=== PATIENT | female | born 1940 | race Caucasian/White ===

== ENCOUNTER → 2019-03-30 | Day surgery (SDC) | payer OTHER, MEDICARE ==
--- NOTE | 2019-04-02 17:03 | PATH ---
Surgical Pathology Report Patient Name: PAOLA BARAKAT [facility]. Rec. #: [id number] /Age/Gender: 1940 (Age: 78) / F Account: [id number] Location: [facility] RADIOLOGY U Taken: 03/30/2019 Received: 03/30/2019 Reported: 04/02/2019 Physicians: Rajesh King M.D. Specimen(s) Received RIGHT BREAST MASS Clinical History Suspicious right breast mass Ultrasound findings: Highly suspicious/malignant Final Diagnosis RIGHT BREAST MASS, 5:00, 1-4CM FN, BIOPSY: DETACHED MALIGNANT DUCTAL EPITHELIUM, IN A BACKGROUND OF MARKED NECROSIS, HEMORRHAGE, AND MICROCALCIFICATIONS. ONE SEPARATE PORTION OF FIBROADIPOSE TISSUE WITH HISTIOCYTIC REACTION, OLD HEMORRHAGE, AND FIBROSIS. Results of Estrogen Receptor (ER) and Progesterone Receptor (NM) studies performed on block "1" at [facility] are as follows: ER (clone [id number] mouse monoclonal antibody by Leica): 0% nuclear staining (Negative). NM (clone16 mouse monoclonal antibody by Leica): 0% nuclear staining (Negative). Positive and negative controls (internal if applicable) show appropriate results. Formalin fixation and cold ischemic times are within current ASCO/CAP recommendations for ER, NM and Her2 testing. Reports for Her 2 and Ki-67 to follow. This case was discussed with Dr. Perea on April 02, 2019. Electronically Signed Real Rashid M.D. Addendum Reported: 04/04/2019 Addendum Diagnosis Biomarker Studies Results of Her2 (IHC) & Ki-67 studies performed on this specimen at [place], [place] ([id number]) interpreted at [facility] are as follows: Her2 IHC (EP3 from [employer], formerly known as [id number], using Dorsey Polymer Refine detection kit): Negative (1+) Ki-67: ~20% (intermediate proliferative index) This case was discussed with Dr. Matthews on April 04, 2019. Real Rashid M.D. Gross Description Received in formalin labeled "right breast biopsy 5:00, 1-4cmfn," is a 3.0 x 2.7 x 0.3 cm aggregate of ferro-brown fragments of necrotic soft tissue. The formalin is filtered and the specimen is entirely submitted in 2 cassettes. Time to formalin fixation: 2 minutes Total formalin fixation time: Approximately 7 hours. 03/30/2019 [facility]03/30/2019
== END | disposition home or self-care (01) ==
LOC: FRADUS-SUR 10:02
PROVIDERS: ATTEND Specialist
PROC: 0HBT3ZX Excision of Right Breast, Percutaneous Approach, Diagnostic (ICD-10-PCS; principal; 2019-03-30)
DX: C50.311 Malignant neoplasm of lower-inner quadrant of right female breast (principal); Z17.1 Estrogen receptor negative status [ER-]; N63.13 Unspecified lump in the right breast, lower outer quadrant; N64.89 Other specified disorders of breast; N64.1 Fat necrosis of breast
CPT/HCPCS: 19083; 77065-TC; 87899; 88305-TC; 88342-TC; A4648

== ENCOUNTER 2019-04-19 08:00 | Inpatient (IN) | payer OTHER, MEDICARE ==
[2019-04-10 12:16] VITALS: BMI 18.3
--- NOTE | 2019-04-12 11:59 | HP ---
Admitting History and Physical - Primary Care Physician PCP: Guille Linn - Admission Chief Complaint: Right breast cancer History of Present Illness: 78 year old female with right breast mass noted by patient who carries a [id number]. Mammogram and US 02/2019 showed 3cm mass in the right 4 to 5:00 region with associated pleomorphic calcifications. US showed the mass to be 3.6x2.7x2.7cm at 5 :00 with irregular margins 1to 4 cm FN. 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 - Past Medical History Cardiovascular: Yes: HTN, Hyperlipdemia Pulmonary: Yes: Pneumonia (H/O) Rheumatology: Yes: Rheumatoid Arthritis Additional Past Medical History: Herpes - Past Surgical History Past Surgical History: Yes: Appendectomy Additional Past Surgical History: Left breast bx 2006 benign Mutiple fxs - Advance Directives Advance Directives: Yes: Living Will, Health Care Proxy - Smoking History Smoking history: Former smoker Have you smoked in the past 12 months: No Aproximately how many cigarettes per day: 5 If you are a former smoker, when did you quit?: 1999 - Alcohol/Substance Use Hx Alcohol Use: Yes (WINE DAILY) Home Medications - Allergies Allergies/Adverse Reactions: Allergies Allergy/AdvReac Type Severity Reaction Status Date / Time No Known Allergies Allergy Verified 04/10/19 12:04 - Home Medications Home Medications: Ambulatory Orders Amlodipine Besylate [Norvasc -] 10 mg PO DAILY 10/12/11 Hydrochlorothiazide [Hctz -] 25 mg PO DAILY 10/12/11 Methotrexate [Mexate -] 7.5 mg PO WEEKLY 10/12/11 Potassium Chloride [Klor-Con] 10 meq PO BID 10/12/11 Folic Acid - 1 mg PO DAILY #0 tablet 10/14/11 Biotin 5,000 mcg PO DAILY 04/04/13 Family Medical History Family Hx Cancer: Daughter (BRIP1+ breast ca at age 49// other daughter BRIP1+ no cancer /Sister CRC) Physical Examination Breast(s): Yes: Other (A sized cupbreast obvious bruising right breast 3 cm palpable mass lower aspect right breast mobile,no adenopathy and left breast neagtive) Problem List - Problems (1) Breast cancer, right breast Code(s): C50.911 - MALIGNANT NEOPLASM OF UNSP SITE OF RIGHT FEMALE BREAST Qualifiers: Breast location: lower outer quadrant of breast Estrogen receptor status: unspecified Patient sex: female Qualified Code(s): C50.511 - Malignant neoplasm of lower-outer quadrant of right female breast Assessment/Plan Right total mastectomy ,sentenel node biopsy, possible axillary node dissection , lymphoscintogram
[2019-04-19] MEDS ORDERED: ISOSULFAN BLUE 10 MG/ML VIAL SQ ONE (10:00)
[2019-04-19] MEDS ORDERED: BUPIVACAINE HCL 0.25% 125 MG/50 ML VIAL ONE (10:00)
[2019-04-19] MEDS ORDERED: MIDAZOLAM HCL 2 MG/2 ML SINGLE DOSE VIAL ONE (10:08)
[2019-04-19] MEDS ORDERED: PROPOFOL 20 ML ONE ×2 (10:13)
[2019-04-19] MEDS ORDERED: SUCCINYLCHOLINE CHLORIDE 200 MG/10 ML SYRINGE ONE (10:13)
[2019-04-19] MEDS ORDERED: SEVOFLURANE 250 ML BTL ONE (10:13)
[2019-04-19] MEDS ORDERED: LIDOCAINE HCL/PF 2% SDV 5ML VIAL ONE (10:27)
[2019-04-19] MEDS ORDERED: ceFAZolin SODIUM 1 GM VIAL ONE (10:27)
[2019-04-19] MEDS ORDERED: LIDOCAINE HCL 2% JELLY (5 ML/TUBE) ONE (10:27)
[2019-04-19] MEDS ORDERED: ONDANSETRON 4 MG/2 ML VIAL ONE (10:27)
[2019-04-19] MEDS ORDERED: DEXAMETHASONE SOD PHOSPHATE 4 MG/1 ML VIAL ONE (10:27)
[2019-04-19] MEDS ORDERED: KETOROLAC TROMETHAMINE 30 MG/1 ML VIAL ONE (10:27)
[2019-04-19] MEDS ORDERED: ONDANSETRON 4 MG/2 ML VIAL IVPUSH PRN (12:43)
[2019-04-19] MEDS ORDERED: ACETAMINOPHEN 325 MG TABLET (FP) PO PRN (12:43)
[2019-04-19] MEDS ORDERED: oxyCODONE HCL 5 MG TABLET PO PRN (12:43)
[2019-04-19] MEDS ORDERED: ZOLPIDEM TARTRATE 5 MG TABLET PO PRN (12:43)
[2019-04-19] MEDS ORDERED: DEXTROSE 5%-0.45% SALINE 1,000 ML IV SCH (12:45)
[2019-04-19] MEDS ORDERED: METHOTREXATE 2.5 MG TABLET PO SCH (12:45)
--- NOTE | 2019-04-19 13:52 | OP ---
DATE OF OPERATION: 04/19/2019 PREOPERATIVE DIAGNOSIS: Right breast cancer lower outer quadrant. POSTOPERATIVE DIAGNOSIS: Right breast cancer lower outer quadrant. PROCEDURE: Right breast total mastectomy with right axillary sentinel lymph node biopsy. PRIMARY SURGEON: Jj Linn MD ASSURANCE OFFICER: AMIE Shah COMPLICATIONS: There were no complications. Briefly, the patient is a 78-year-old G3, P3 postmenopausal white female with [place] descent. She has a family history that her daughter had breast cancer at age 49 and was BRIP1 genetic positive. 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 She noticed a right lower outer quadrant breast mass and on March 16, 2019, underwent a mammography and ultrasound showing a 3 cm mass in the right breast lower outer quadrant with pleomorphic calcifications measuring about 3.6 x 2.7 x 2.7 cm. Ultrasound-guided core biopsy showed detached malignant ductal cancer cells, which were triple negative with a KI67 of 20%. MRI showed localized disease with no lymphadenopathy. Due to lack of formal architectural pathology, the patient was advised undergoing surgery and due to the size of the lesion and her small breast, mastectomy was indicated. She understood the need for a sentinel lymph node biopsy. She was offered reconstruction, but refused. The patient was brought in for the procedure on April 19, 2019. She first underwent lymphoscintigraphy at [facility] and then was brought to the [facility] holding area. In the holding area, site verification was made and informed consent was obtained. PROCEDURE: She was brought into the operating room and laid on the OR table in the supine position. Venodynes were placed on the lower extremities. She received a g of Ancef prior to incision. She underwent general laryngeal mask airway anesthesia. The right breast was sterilely prepped and draped in the usual fashion and 3 mL of Lymphazurin Blue were injected intradermally around the right breast nipple areola complex and massage was instituted. At this point, the sentinel lymph node biopsy was first performed. An incision was made in the right axilla and dissection was undertaken and blue lymphatics were easily seen coursing to 2 blue hot lymph nodes. The first sentinel lymph node had 10 second gamma count of 4746 and the second sentinel node had a 10 second gamma count of 1281. Both nodes were sent for frozen section and came back negative, so no further nodes were removed. Background count after removing these 2 nodes was 285. At this point, the total mastectomy was performed removing the entire nipple areola complex through an elliptical incision. Skin flaps were raised superiorly to the level of the clavicle, medially to the level of the sternum, laterally to the level of the latissimus, and inferiorly below the level of the inframammary fold. The breast was taken out off the pectoralis major muscle from medial to lateral completely removed intact. It was oriented with the long lateral short superior suture and then sent off the field placed in formalin to go to Pathology. The cancer was easily felt within the middle of the specimen. Hemostasis was achieved and the wound was copiously irrigated with warm sterile saline. Skin edges were trimmed for good cosmetic result. Two 15 Jagdeep drains were then placed underneath the skin flaps, one inferiorly, one superiorly, and brought through separate stab incisions on the lateral skin flap and secured in place using 3-0 nylon suture. Wounds were all closed using interrupted 3-0 deep dermal Vicryl suture and a running 4-0 subcuticular Biosyn suture. Mastisol and Steri-Strips were applied over the wound with the compressive dressing placed over this. She was placed in a chest binder postoperatively and the laryngeal mask airway tube was removed at the end of the case. The patient will be recovered in the post anesthesia care unit and will be admitted postoperatively for pain and wound management. All sponge and needle counts were correct at the end of the case and estimated blood loss was about 60 mL. She was hemodynamically stable throughout. JJ LINN M.D. [id number]
[2019-04-19] MEDS ORDERED: LACTATED RINGERS SOLUTION 1,000 ML IV SCH (14:15)
[2019-04-19] MEDS: CEFAZOLIN 1 GM/D5W 1 GM/50 ML BAG IVPB SCH ×2 (15:31→20:55)
[2019-04-19] MEDS: POTASSIUM CHLORIDE TABS 10 MEQ TABLET.ER (FP) PO SCH (21:06)
[2019-04-19] MEDS ORDERED: ATORVASTATIN CA 20 MG TABLET (FP) PO SCH (22:00)
[2019-04-20] MEDS: CEFAZOLIN 1 GM/D5W 1 GM/50 ML BAG IVPB SCH ×2 (03:27→09:45)
[2019-04-20 07:07] VITALS: TEMP 97.7
[2019-04-20 07:50] LABS: HEMATOCRIT 29.6 % (32.4-45.2); MCH 36.4 pg (25.7-33.7); MCHC 33.9 g/dl (32.0-36.0); MEAN CELL VOLUME 107.4 fl (80-96); MEAN PLT VOLUME 9.5 fl (7.5-11.1); PLATELET COUNT 193 K/MM3 (134-434); RBC 2.76 M/mm3 (3.60-5.2); RDW 15.8 % (11.6-15.6); WHITE BLOOD COUNT 9.9 K/mm3 (4.0-10.8)
[2019-04-20] MEDS ORDERED: HEPARIN NA (PORCINE) 5,000 UNITS/ML 1ML VIAL SQ SCH (08:00)
--- NOTE | 2019-04-20 09:15 | PN ---
Progress Note, Physician Chief Complaint: S/P right mastectomy with snbx POD#1 History of Present Illness: Patient was seen at the bedside this am and reports good pain control. She is tolerating po well and has voided. - Current Medication List Current Medications: Active Medications Acetaminophen (Tylenol -) 650 mg PO Q4H PRN PRN Reason: FEVER Amlodipine Besylate (Norvasc -) [address] [facility] Atorvastatin Calcium (Lipitor -) [address] [facility] Last Admin: 04/19/19 21:06 Dose: 20 mg Fentanyl (Sublimaze Injection -) 25 mcg IVPUSH [id number] PRN PRN Reason: PAIN-PACU ORDER X 4 DOSES ONLY Folic Acid (Folic Acid -) [address] [facility] Heparin Sodium (Porcine) (Heparin -) 5,000 unit SQ BID@0800,2000 [facility] Hydrochlorothiazide (Hctz -) [address] [facility] Cefazolin Sodium (Ancef 1 Gm Premixed Ivpb -) 1 gm in 50 mls @ 100 mls/hr IVPB Q6H-IV JOLIE Stop: 04/26/19 14:59 Last Admin: 04/20/19 03:27 Dose: 100 mls/hr Dextrose/Sodium Chloride (D5-1/2ns -) 1,000 mls @ 100 mls/hr IV ASDIR [facility] Last Admin: 04/19/19 13:50 Dose: 0 mls Lactated Ringer's (Lactated Ringers Solution) 1,000 mls @ 75 mls/hr IV ASDIR [facility] Methotrexate (Mexate -) 7.[address] [facility] Ondansetron HCl (Zofran Injection) 4 mg IVPUSH Q6H PRN PRN Reason: NAUSEA AND/OR VOMITING Oxycodone HCl (Roxicodone -) 5 mg PO Q4H PRN PRN Reason: PAIN LEVEL 4 - 6 Potassium Chloride (K-Dur -) [address] [facility] Last Admin: 04/19/19 21:06 Dose: 10 meq Zolpidem Tartrate (Ambien -) 5 mg PO HS PRN PRN Reason: Insomnia - Objective Vital Signs: Vital Signs Temperature 97.7 F 04/20/19 06:00 Pulse Rate 95 H 04/20/19 06:00 Respiratory Rate 18 04/20/19 06:00 Blood Pressure 124/61 04/20/19 06:00 O2 Sat by Pulse Oximetry (%) 100 04/20/19 08:26 Constitutional: Yes: Well Nourished, Calm Breast(s): Yes: Other (Right chest flap with steristrips intact. Minimal ecchymosis noted. JPs x 2 with serosanguinous discharge noted. No swelling or erythema noted.) Labs: CBC, BMP 04/20/19 06:50 Problem List - Problems (1) Breast cancer, right breast Code(s): C50.911 - MALIGNANT NEOPLASM OF UNSP SITE OF RIGHT FEMALE BREAST Qualifiers: Breast location: lower outer quadrant of breast Estrogen receptor status: unspecified Patient sex: female Qualified Code(s): C50.511 - Malignant neoplasm of lower-outer quadrant of right female breast Assessment/Plan Assess: S/P right mastectomy with snbx POD#1 -doing well Plan: Continue current tx regime Teach MORENA monitoring Make appt next week to see Dr. Linn Possible discharge in pm
[2019-04-20] MEDS: POTASSIUM CHLORIDE TABS 10 MEQ TABLET.ER (FP) PO SCH (09:46)
[2019-04-20] MEDS ORDERED: HYDROCHLOROTHIAZIDE 25 MG TABLET (FP) PO SCH (10:00)
[2019-04-20] MEDS ORDERED: amLODIPine BESYLATE 10 MG TABLET (FP) PO SCH (10:00)
[2019-04-20] MEDS ORDERED: FOLIC ACID 1 MG TABLET (FP) PO SCH (10:00)
[2019-04-20 10:56] VITALS: BP 102/41; PULSE 93
--- NOTE | 2019-04-24 15:35 | PATH ---
Surgical Pathology Report Patient Name: PAOLA BARAKAT Med. Rec. #: [id number] /Age/Gender: 1940 (Age: 78) / F Account: [id number] Location: [facility] Taken: 04/19/2019 Received: 04/19/2019 Reported: 04/24/2019 Physicians: Guille Linn M.D. Specimen(s) Received A: RIGHT AXILLARY SENTINEL LYMPH NODE #1 (FS) B: RIGHT AXILLARY SENTINEL LYMPH NODE #2 (FS) C: RIGHT BREAST MASTECTOMY Clinical History Right breast cancer Intraoperative Consult Diagnosis A. Right axillary sentinel lymph node #1, frozen section: One negative lymph node (0/1). B. Right axillary sentinel lymph node #2, frozen section: One negative lymph node (0/1). Misbah Reynaga, 04/19/2019 Final Diagnosis A. RIGHT AXILLARY SENTINEL LYMPH NODE #1 (4746), EXCISION (FS): ONE LYMPH NODE, NEGATIVE FOR METASTATIC CARCINOMA IN MULTIPLE LEVELS OF H&E STAINED SLIDES (0/1). B. RIGHT AXILLARY SENTINEL LYMPH NODE #2 (4281), EXCISION (FS): ONE LYMPH NODE, NEGATIVE FOR METASTATIC CARCINOMA IN MULTIPLE LEVELS OF H&E STAINED SLIDES (0/1). C. RIGHT BREAST MASTECTOMY: INVASIVE CARCINOMA WITH APOCRINE FEATURES, LOWER INNER QUADRANT, POORLY DIFFERENTIATED (TUBULE SCORE 2/3, NUCLEAR GRADE: 3/3, MITOTIC SCORE: 3/3, TOTAL SCORE 8/9, MARILEE GRADE 3), WITH MARKED NECROSIS AND MICROCALCIFICATIONS, MEASURING 2.4 CM IN GREATEST DIMENSION, MICROSCOPICALLY. 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 SURGICAL MARGINS ARE UNINVOLVED BY CARCINOMA. INVASIVE CARCINOMA IS AT 4 MM FROM THE CLOSEST (POSTERIOR) MARGIN. LYMPHOVASCULAR INVASION IS PRESENT. PRIOR BIOPSY SITE WITH REACTIVE CHANGES. REMAINING BREAST TISSUE SHOW ATYPICAL LOBULAR HYPERPLASIA (ALH), APOCRINE METAPLASIA, MICROCYSTS, AND STROMAL FIBROSIS. PATHOLOGIC STAGE (pTNM): pT2 pN0 SEE ALSO INVASIVE CARCINOMA CASE SUMMARY BELOW. Comment: Immunohistochemical stains performed and interpreted at [facility] show the following results: smooth muscle myosin heavy chain and p63 show loss of the myoepithelial cell layer in the areas of invasive carcinoma (block C3). E-Cadherin demonstrates loss of membranous staining in areas of atypical lobular hyperplasia (block C11). Positive and negative controls (internal if applicable) show appropriate results. Comments Breast Invasive Carcinoma: Surgical Pathology Case Summary (Based on AJCC TNM 8 th edition) Procedure _x_ Total mastectomy (including nipple-sparing and skin-sparing mastectomy) Specimen Laterality _x_ Right Tumor Size _x_ Greatest dimension of largest invasive focus >1 mm (millimeters): 24 mm Histologic Type _x_ Invasive carcinoma with apocrine features Histologic Grade ([place] Histologic Score) Glandular (Acinar)/Tubular Differentiation _x_ Score 2 (10% to 75% of tumor area forming glandular/tubular structures) Nuclear Pleomorphism _x_ Score 3 Mitotic Rate _x_ Score 3 Overall Grade _x_ Grade 3 (scores of 8 or 9) Tumor Focality _x_ Single focus of invasive carcinoma Ductal Carcinoma In Situ (DCIS) No DCIS in specimen Margins Invasive Carcinoma Margins _x_ Uninvolved by invasive carcinoma Distance from closest margin (millimeters): 4 mm Closest margin: Posterior margin DCIS Margins No DCIS in specimen Regional Lymph Nodes _x_ Uninvolved by tumor cells Number of Lymph Nodes Examined: 2 Number of [place] Nodes Examined: 2 Treatment Effect _x_ No known presurgical therapy Lymphovascular Invasion _x_ Present Pathologic Stage Classification (pTNM, AJCC 8th Edition) Primary Tumor (Invasive Carcinoma) (pT) _x_ pT2: Tumor >20 mm but =50 mm in greatest dimension Category (pN) _x_ pN0: No regional lymph node metastasis identified or ITCs only Biomarker Studies Results of ER and RI studies performed on this specimen (block# C3) at [facility] are as follows: ER (clone 6F11 mouse monoclonal antibody by [employer]): 0 % nuclear staining (negative). RI (clone16 mouse monoclonal antibody by [employer]): 0% nuclear staining (negative). Results of Her2 and Ki67 studies will be reported separately in an addendum. Positive and negative controls (internal if applicable) show appropriate results. Formalin fixation and cold ischemic times are within current ASCO/CAP recommendations for ER, RI and Her2 testing. Electronically Signed Real Rashid M.D. Addendum Reported: 04/25/2019 Addendum Diagnosis Biomarker Studies Results of Her2 (IHC) & Ki-67 studies performed on this specimen (block C3) at [place], [place] ([id number]) interpreted at [facility] are as follows: Her2 IHC (EP3 from [employer], formerly known as [id number], using Dorsey Polymer Refine detection kit): Negative (1+) Ki-67: ~40% (high proliferative index) Real Rashid M.D. Gross Description A. Received fresh for frozen section evaluation, labeled "right axillary sentinel lymph node #1" is a 2.0 x 1.0 x 0.3 cm lymph node with attached fatty tissue. Frozen section is performed on the lymph node. The frozen section residue is entirely submitted in one cassette. B. Received fresh for frozen section evaluation, labeled "right axillary sentinel node #2" is a 0.6 x 0.4 x 0.2 cm lymph node with attached fatty tissue. Frozen section is performed on the lymph node. The frozen section residue is entirely submitted in one cassette. C. Received in formalin, labeled "right breast mastectomy," is a 283 gram, 18.8 x 16.5 x 3.4 cm. right mastectomy specimen with a short suture marking the superior aspect and a long suture marking the lateral aspect of the specimen, per the surgeon. The anterior surface displays a 17.0 x 6.5 cm ferro, irregular portion of skin with a 0.8 cm in diameter nipple. The deep margin is inked black and the anterior soft tissue margin is inked blue. The specimen is serially sectioned from lateral to medial. Sectioning reveals a 2.6 x 2.5 x 1.6 cm ferro, indurated, well circumscribed and focally hemorrhagic mass in the lower inner quadrant (LIQ). The mass is focally 0.3 cm from the deep margin. The mass is focally 0.4 cm from the anterior soft tissue margin and 1.2 cm from the skin. The remaining breast parenchyma displays foci of firm fibrous tissue. Solar Installation [employer] sections are submitted in 18 cassettes as follows: 1-serially sectioned to nipple; 2-subareolar shave; 3-full face section of LIQ mass; 4-additional full face section of LIQ mass with deep margin; 8-1-shvqnklskv mass with deep margin; 7-8-mass with anterior soft tissue margin; 9-mass with skin; 58-55-mrgeddzkza LIQ tissue; 12-14-upper inner quadrant; 15-16-upper outer quadrant; 17-18-lower outer quadrant. Time to formalin fixation: 3 minutes Total formalin fixation time: Approximately 30 hours. AE04/19/2019 ebram/04/19/2019
== END 2019-04-20 14:43 | disposition home or self-care (01) | DRG 581 ==
LOC: EDSTATUS 08:00 → FM/S 09:15 → EDSTATUS 09:30 → FM/S 14:07
PROVIDERS: ADMIT Surgery Surgical Oncology; ATTEND Surgery Surgical Oncology
PROC: 0HTT0ZZ Resection of Right Breast, Open Approach (ICD-10-PCS; principal; 2019-04-19 10:38)
PROC: 07B50ZX Excision of Right Axillary Lymphatic, Open Approach, Diagnostic (ICD-10-PCS; 2019-04-19 10:38)
DX: C50.511 Malignant neoplasm of lower-outer quadrant of right female breast (principal); I10 Essential (primary) hypertension; E78.5 Hyperlipidemia, unspecified; M06.9 Rheumatoid arthritis, unspecified
CPT/HCPCS: 36415; 78195-TC; 85027; 88307-TC; 88331-TC; 88341-TC; 94760; A9541; J1644

== ENCOUNTER 2019-12-18 07:32 | Day surgery (SDC) | payer OTHER, MEDICARE ==
--- OUTSIDE RECORDS SUMMARY | 2019-12-12 08:35 | XMS ---
:1940 Author Organization [facility] Care Team Providers Name Role Phone James Ellis Unavailable Unavailable Rhonda, James Unavailable Unavailable Rhonda, James Unavailable Unavailable Rhonda, James Unavailable Unavailable Rhonda, James Unavailable Unavailable Rhonda, James Unavailable Unavailable Rhonda, James Unavailable Unavailable Rhonda, James Unavailable Unavailable Rhonda, James Unavailable Unavailable ELTON LE, [id number] Unavailable Unavailable Re-disclosure Warning The records that you are about to access may contain information from federally- assisted alcohol or drug abuse programs. If such information is present, then the following federally mandated warning applies: This information has been disclosed to you from records protected by federal confidentiality rules (42 CFR part 2). The federal rules prohibit you from making any further disclosure of this information unless further disclosure is expressly permitted by the written consent of the person to whom it pertains or as otherwise permitted by 42 CFR part 2. A general authorization for the release of medical or other information is NOT sufficient for this purpose. The Federal rules restrict any use of the information to criminally investigate or prosecute any alcohol or drug abuse patient.The records that you are about to access may contain highly sensitive health information, the redisclosure of which is protected by Article 27-F of the [facility] Public Health law. If you continue you may haveaccess to information: Regarding HIV / AIDS; Provided by facilities licensed or operated by the [facility] Office of Mental Health; or Provided by the [facility] Office for People With Developmental Disabilities. If such information is present, then the following [facility] mandated warning applies: This information has been disclosed to you from confidential records which are protected by state law. State law prohibits you from making any further disclosure of this information without the specific written consent of the person to whom it pertains, or as otherwise permitted by law. Any unauthorized further disclosure in violation of state law may result in a fine or long term sentence or both. A general authorization for the release of medical or other information is NOT sufficient authorization for further disclosure. Encounters Encounter Providers Location Date Indications Data Source(s ) Attender: James 11/28/2019 [facility] ( [facility] 12:00:00 AM EDT Medical, PC) Office Outpatient Attender: [id number] 06/08/2019 R89.7 D10.39 [facility] JACOBYTEJAS, 12:56:00 PM EDT Health [facility]ly [facility] AARONAdmitter: [id number] Cor poration ELTON LEReferrer: [id number] ELTON LE R89.7 D10.39 Medications Medication Brand Start Product Dose Route Administrative Pharmacy [facility] Indications Reaction Description Data Name Date Form Instructions Instructions Source(s) atorvastati ATORVA 10/14/ TABLET 90 complet ATOR VASTATIN [facility] (St n 40 MG STATIN 2019 ed [facility] Oral Tablet :91054 12:00: Medi elizabeth, ATORVASTATI 1 00 AM PC) [id number] EDT Amlodipine AMLODI 10/14/ TABLET 90 complet AMLOD IPINE [facility] (St 5 MG Oral PINE:1 2019 ed [facility] Tablet 43573 12:00: Medical, AMLODIPINE: 00 AM PC) [id number] EDT Potassium POTASS 09/23/ TABLET, 60 complet POTAS SIUM [facility] (St Chloride 10 IUM 2019 EXTENDED ed CHLORIDE [facility] MEQ CHLORI 12:00: RELEASE Medical, POTASSIUM DE:180 00 AM PC) CHLORIDE:18 1298 EDT 11824 Alprazolam ALPRAZ 06/24/ TABLET 60 complet ALPRA ZOLAM [facility] (St 0.25 MG OLAM:3 2019 ed [facility] Oral Tablet 93218 12:00: Medic al, ALPRAZOLAM: 00 AM PC) 153092 EDT Hydrochloro HYDROC 03/20/ TABLET 90 complet HYDR OCHLOROT [facility] (St thiazide 25 HLOROT 2019 ed HIAZIDE [facility] Oral HIAZID 12:00: Medical, Tablet E:3107 00 AM PC) HYDROCHLORO 98 EST THIAZIDE:31 0798 Insurance Providers Payer name Policy type Policy ID Covered Covered libertarian's Policy P wilma / Coverage libertarian ID relationship to Reeder Inf ormation type reeder MEDICARE [id number] SP [id number] [facility] [id number] SP [id number] CARE [place] [id number] 1 [id number] PART B DOWNSTATE AARP MEDICARE [id number] SUPP[place] [id number] 1 [id number] PART B [place] MEDICARE [id number] SP [id number] MEDICARE [id number] SP [id number] [facility] [id number] SP [id number] CARE OPTIONS [facility] [id number] SP [id number] CARE OPTIONS [facility] [id number] SP [id number] CARE OPTIONS MEDICARE [id number] SP [id number] A Problems, Conditions, and Diagnoses Code Display Name Description Problem Type Effective Data Sour ce(s) Dates Z13.89 Encounter for ENCOUNTER FOR Problem 04/11/2019 [facility] ( St screening for SCREENING FOR 12:00:00 AM [facility], other disorder OTHER DISORDER EST PC) Z01.818 Encounter for ENCOUNTER FOR Problem 04/11/2019 [facility] ( St other OTHER 12:00:00 AM [facility], preprocedural PREPROCEDURAL EST PC) examination EXAMINATION C50.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 Problem 0 [facility] (St of unspecified OF UNSPECIFIED 12:00:00 AM [facility], site of SITE OF EST PC) unspecified female UNSPECIFIED FEMALE breast BREAST J06.9 Acute upper ACUTE UPPER Problem 03/05/2019 [facility] (St respiratory RESPIRATORY 12:00:00 AM [facility] elizabeth, infection, INFECTION, EST PC) unspecified UNSPECIFIED B37.0 Candidal CANDIDAL Problem 02/07/2019 [facility] (St stomatitis STOMATITIS 12:00:00 AM [facility], EST PC) J20.8 Acute bronchitis ACUTE BRONCHITIS Problem 01/31/2019 ME D[facility] (St due to other DUE TO OTHER 12:00:00 AM [facility] dical, specified SPECIFIED EST PC) organisms ORGANISMS 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 Diagnosis [address] [place] [address] other parts of OTHER PARTS OF 12:56:00 PM Count y Health mouth MOUTH [employer] R89.7 Abnormal ABNORMAL HISTOLOG Diagnosis 06/08/2019 [facility] histological FINDINGS IN 12:56:00 PM [facility] findings in SPECIMENS FROM OT EDT Care specimens from ORG/TISS Corporatio n other organs, systems and tissues Surgeries/Procedures Procedure Description Date Indications Data Source(s) Documentation of current 11/28/2019 [facility] ([facility] medications (procedure) 12:00:00 AM EDT HARRY Botello) Documentation of current 11/28/2019 [facility] ([facility] medications (procedure) 12:00:00 AM EDT HARRY melendez) Documentation of current 11/28/2019 [facility] ([facility] medications (procedure) 12:00:00 AM EDT HARRY Botello) Documentation of current 11/28/2019 [facility] ([facility] medications (procedure) 12:00:00 AM EDT HARRY melendez) ECG ROUTINE ECG W/LEAST 12 11/28/2019 WILBER ([facility] LDS W/I&R 12:00:00 AM [facility] PC) Documentation of current 04/11/2019 [facility] ([facility] medications (procedure) 12:00:00 AM HARRY Wyman) Documentation of current 04/11/2019 [facility] ([facility] medications (procedure) 12:00:00 AM HARRY Wyman) Documentation of current 04/11/2019 [facility] ([facility] medications (procedure) 12:00:00 AM HARRY Wyman) Documentation of current 04/11/2019 [facility] ([facility] medications (procedure) 12:00:00 AM HARRY Wyman) Documentation of current 04/11/2019 [facility] ([facility] medications (procedure) 12:00:00 AM JERO melendez, PC) Documentation of current 04/11/2019 [facility] ([facility] medications (procedure) 12:00:00 AM JERO melendez, PC) Documentation of current 04/11/2019 [facility] ([facility] medications (procedure) 12:00:00 AM JERO melendez, PC) OFFICE OUTPATIENT VISIT 15 04/11/2019 Antonio MERINO ([facility] MINUTES 12:00:00 AM JERO Fiore, PC) Documentation of current 04/04/2019 [facility] ([facility] medications (procedure) 12:00:00 AM JERO melendez, PC) Documentation of current 04/04/2019 [facility] ([facility] medications (procedure) 12:00:00 AM JERO melendez, PC) OFFICE OUTPATIENT VISIT 25 04/04/2019 Antonio WILBER ([facility] MINUTES 12:00:00 AM JERO Fiore, PC) Documentation of current 03/05/2019 MED [facility] ([facility] medications (procedure) 12:00:00 AM JERO melendez, PC) Documentation of current 03/05/2019 [facility] ([facility] medications (procedure) 12:00:00 AM JERO melendez, PC) Documentation of current 03/05/2019 [facility] ([facility] medications (procedure) 12:00:00 AM JERO melendez, PC) Documentation of current 03/05/2019 [facility] ([facility] medications (procedure) 12:00:00 AM JERO melendez, PC) Documentation of current 03/05/2019 [facility] ([facility] medications (procedure) 12:00:00 AM JERO melendez, PC) Documentation of current 03/05/2019 [facility] ([facility] medications (procedure) 12:00:00 AM JERO melendez, PC) Documentation of current 03/05/2019 [facility] ([facility] medications (procedure) 12:00:00 AM JERO melendez, PC) OFFICE OUTPATIENT VISIT 15 03/05/2019 Antonio WILBER ([facility] MINUTES 12:00:00 AM EST [facility], PC) Documentation of current 02/14/2019 MED [facility] ([facility] medications (procedure) 12:00:00 AM JERO melendez, PC) Documentation of current 02/14/2019 [facility] ([facility] medications (procedure) 12:00:00 AM JERO melendez, PC) Documentation of current 02/14/2019 [facility] ([facility] medications (procedure) 12:00:00 AM JERO melendez, PC) Documentation of current 02/14/2019 [facility] ([facility] medications (procedure) 12:00:00 AM JERO melendez, PC) Documentation of current 02/14/2019 [facility] ([facility] medications (procedure) 12:00:00 AM JERO melendez, PC) Documentation of current 02/14/2019 MED [facility] ([facility] medications (procedure) 12:00:00 AM JERO melendez, PC) Documentation of current 02/14/2019 [facility] ([facility] medications (procedure) 12:00:00 AM JERO melendez, PC) Documentation of current 02/14/2019 [facility] ([facility] medications (procedure) 12:00:00 AM JERO melendez, PC) OFFICE OUTPATIENT VISIT 15 02/14/2019 Antonio MERINO ([facility] MINUTES 12:00:00 AM JERO Fiore, PC) Documentation of current 02/07/2019 [facility] ([facility] medications (procedure) 12:00:00 AM JERO melendez, PC) Documentation of current 02/07/2019 [facility] ([facility] medications (procedure) 12:00:00 AM JERO melendez, PC) Documentation of current 02/07/2019 [facility] ([facility] medications (procedure) 12:00:00 AM JERO melendez, PC) Documentation of current 02/07/2019 [facility] ([facility] medications (procedure) 12:00:00 AM JERO melendez, PC) Documentation of current 02/07/2019 [facility] ([facility] medications (procedure) 12:00:00 AM JERO Alvarez edical, PC) Documentation of current 02/07/2019 MED [facility] ([facility] medications (procedure) 12:00:00 AM EJRO melendez, PC) Documentation of current 02/07/2019 [facility] ([facility] medications (procedure) 12:00:00 AM JERO Alvarez edical, PC) Documentation of current 02/07/2019 MED [facility] ([facility] medications (procedure) 12:00:00 AM JERO melendez, PC) Documentation of current 02/07/2019 [facility] ([facility] medications (procedure) 12:00:00 AM HARRY Wyman) Documentation of current 02/07/2019 [facility] ([facility] medications (procedure) 12:00:00 AM HARRY Wyman) Documentation of current 02/07/2019 [facility] ([facility] medications (procedure) 12:00:00 AM JERO melendez, PC) OFFICE OUTPATIENT VISIT 15 02/07/2019 Antonio MERINO ([facility] MINUTES 12:00:00 AM JERO Fiore, PC) Documentation of current 01/31/2019 [facility] ([facility] medications (procedure) 12:00:00 AM JERO melendez PC) Documentation of current 01/31/2019 [facility] ([facility] medications (procedure) 12:00:00 AM JERO melendez PC) Documentation of current 01/31/2019 MED [facility] ([facility] medications (procedure) 12:00:00 AM JERO melendez PC) Documentation of current 01/31/2019 [facility] ([facility] medications (procedure) 12:00:00 AM HARRY Wyman) Documentation of current 01/31/2019 [facility] ([facility] medications (procedure) 12:00:00 AM JERO melendez PC) Documentation of current 01/31/2019 [facility] ([facility] medications (procedure) 12:00:00 AM JERO melendez PC) Documentation of current 01/31/2019 MED [facility] ([facility] medications (procedure) 12:00:00 AM JERO melendez PC) Documentation of current 01/31/2019 [facility] ([facility] medications (procedure) 12:00:00 AM JERO melendez PC) Documentation of current 01/31/2019 MED [facility] ([facility] medications (procedure) 12:00:00 AM JERO melendez, PC) OFFICE OUTPATIENT VISIT 15 01/31/2019 Antonio MERINO ([facility] MINUTES 12:00:00 AM JERO Fiore, PC) Documentation of current 12/27/2018 MED [facility] ([facility] medications (procedure) 12:00:00 AM RABIA melendez, PC) Documentation of current 12/27/2018 MED [facility] ([facility] medications (procedure) 12:00:00 AM RABIA melendez ) Influenza virus vaccine, 12/27/2018 [facility] ([facility] split virus, when 12:00:00 AM [facility] , ) administered to individuals 3 years of age and older, for intramuscular use (flulaval) Administration of 12/27/2018 [facility] ([facility] influenza virus vaccine 12:00:00 AM EDT Antonio melendez ) Results ID Date Data Source [id number] 10/15/2019 04:07:00 PM EDT [facility] Name Value Range Interpretation Code Description Data Treva rce(s) Supporting Document(s ) 2019-nCoV [facility] RNA XXX ANGELES+probe- Imp This lab was ordered by [facility] and reported by [facility]. 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 Alcohol Use Social Smoking 11/28/2019 Former smoker completed Former smoker [facility] ( St 12:00:00 AM EDT [facility], ) Vital Signs ID Date Data Source UNK Name Value Range Interpretation Code Description Data Source(s) Heart rate 88 /min 88 /min [facility] ([facility] , ) Respiratory rate 14 /min 14 /min [facility] ( [facility] , ) Body mass index 20.5 kg/m2 20.5 kg/m2 MED[facility] (S t (BMI) [Ratio] [facility], ) Diastolic blood 70 mm[Hg] 70 mm[Hg] [facility] (S t pressure [facility] , ) Systolic blood 124 mm[Hg] 124 mm[Hg] [facility] (St pressure [facility] , ) Body weight 116 lb 116 lb MED[facility] ([facility] , ) Body height 63 in 63 in [facility] ([facility]) Heart rate 96 /min 96 /min [facility] ([facility]) Respiratory rate 15 /min 15 /min MED[facility] ( [facility]) Body temperature 98.1 F 98.1 F MED[facility] ( [facility]) Body mass index 20.4 kg/m2 20.4 kg/m2 MED[facility] (S t (BMI) [Ratio] [facility], ) Diastolic blood 72 mm[Hg] 72 mm[Hg] [facility] (S t pressure [facility] Systolic blood 128 mm[Hg] 128 mm[Hg] [facility] ([facility]) Body weight 115 lb 115 lb MED[facility] ([facility]) Body height 63 in 63 in [facility] ([facility]) Diastolic blood 74 mm[Hg] 74 mm[Hg] MED[facility] (S t pressure [facility] , ) Systolic blood 128 mm[Hg] 128 mm[Hg] MED[facility] ([facility]) Heart rate 104 /min 104 /min MED[facility] ([facility]) Respiratory rate 16 /min 16 /min MED[facility] ( [facility]) Heart rate 92 /min 92 /min [facility] ([facility]) Respiratory rate 16 /min 16 /min [facility] ( [facility]) Body mass index 19.8 kg/m2 19.8 kg/m2 MED[facility] (S t (BMI) [Ratio] [facility], ) Diastolic blood 72 mm[Hg] 72 mm[Hg] [facility] (S t pressure [facility] Systolic blood 142 mm[Hg] 142 mm[Hg] MED[facility] ([facility] , ) Body weight 112 lb 112 lb MED[facility] ([facility]) Body height 63 in 63 in [facility] ([facility]) Heart rate 92 /min 92 /min [facility] ([facility]) Respiratory rate 16 /min 16 /min MED[facility] ( [facility]) Diastolic blood 62 mm[Hg] 62 mm[Hg] [facility] (S t pressure [facility] Systolic blood 120 mm[Hg] 120 mm[Hg] MED[facility] ([facility]) Heart rate 82 /min 82 /min [facility] ([facility]) Respiratory rate 16 /min 16 /min [facility] ( [facility]) Body temperature 97.5 F 97.5 F MED[facility] ( [facility]) Inhaled oxygen 99 % 99 % MED[facility] ([facility]) Diastolic blood 76 mm[Hg] 76 mm[Hg] MED[facility] (S t [facility]) Systolic blood 140 mm[Hg] 140 mm[Hg] MED[facility] ([facility]) Heart rate 120 /min 120 /min MED[facility] ([facility]) Respiratory rate 18 /min 18 /min MED[facility] ( [facility]) Body temperature 98.1 F 98.1 F MED[facility] ( [facility]) Body mass index 19.8 kg/m2 19.8 kg/m2 MED[facility] (S t (BMI) [Ratio] [facility]) Diastolic blood 50 mm[Hg] 50 mm[Hg] MED[facility] (S t [facility]) Systolic blood 116 mm[Hg] 116 mm[Hg] MED[facility] ([facility]) Body weight 112 lb 112 lb MED[facility] ([facility]) Body height 63 in 63 in [facility] ([facility])
[2019-12-12 17:32] VITALS: BMI 18.8
--- OUTSIDE RECORDS SUMMARY | 2019-12-18 07:36 | XMS ---
:1940 Author Organization [facility] Care Team Providers Name Role Phone James Ellis Unavailable Unavailable Rhonda, James Unavailable Unavailable Rhonda, James Unavailable Unavailable Rhonda, James Unavailable Unavailable Rhonda, James Unavailable Unavailable Rhonad, James Unavailable Unavailable Rhonda, James Unavailable Unavailable Rhonda, James Unavailable Unavailable Rhonda, Jaems Unavailable Unavailable Rhonda, James Unavailable Unavailable ELTON LE, [id number] Unavailable Unavailable Re-disclosure Warning The records that [...] is protected by Article 27-F of the [place] State Public Health law. If you continue you may haveaccess to information: Regarding HIV / AIDS; Provided by facilities licensed or operated by the [facility] Office of Mental Health; or Provided by the [facility] Office for People With Developmental Disabilities. If such information is present, then the following [facility] mandated warning applies: This information has been [...] law may result in a fine or residential sentence or both. A general authorization for the release of medical or other information is NOT sufficient authorization for further disclosure. Encounters Encounter Providers Location Date Indications Data Source(s ) Attender: James 11/28/2019 [facility] ( [facility] 12:00:00 AM EDT Medical, PC) Office Outpatient Attender: [id number] 06/08/2019 R89.7 D10.39 [facility] MIMI, 12:56:00 PM T [facility] AARONAdmitter: [id number] Cor poration ELTON LEReferrer: [id number] ELTON LE R89.7 D10.39 Medications Medication Brand Start Product Dose Route Administrative Pharmacy [facility] Indications Reaction Description Data Name Date Form Instructions Instructions Source(s) atorvastati ATORVA 10/14/ TABLET 90 complet ATOR VASTATIN MED[facility] (St n 40 MG STATIN 2019 ed [facility] Tablet :00604 12:00: Medi elizabeth, ATORVASTATI 1 00 AM PC) [id number] EDT atorvastati ATORVA 10/14/ TABLET 90 complet ATOR VASTATIN [facility] (St n 40 MG STATIN 2019 ed [facility] Tablet :15194 12:00: Medi elizabeth, ATORVASTATI 1 00 AM PC) [id number] EDT Amlodipine AMLODI 10/14/ TABLET 90 complet AMLOD IPINE [facility] (St 5 MG Oral PINE:1 2019 ed [facility] Tablet 58520 12:00: Medical, AMLODIPINE: 00 AM PC) [id number] EDT Amlodipine AMLODI 10/14/ TABLET 90 complet AMLOD IPINE [facility] (St 5 MG Oral PINE:1 2019 ed [facility] Tablet 68787 12:00: Medical, AMLODIPINE: 00 AM PC) [id number] EDT Potassium POTASS 09/23/ TABLET, 60 complet POTAS SIUM [facility] (St Chloride 10 IUM 2020 EXTENDED ed CHLORIDE [facility] MEQ CHLORI 12:00: RELEASE Medical, POTASSIUM DE:180 00 AM PC) CHLORIDE:18 1298 EDT 22423 Potassium POTASS 09/23/ TABLET, 60 complet POTAS SIUM [facility] (St Chloride 10 IUM 2020 EXTENDED ed CHLORIDE [facility] MEQ CHLORI 12:00: RELEASE Medical, POTASSIUM DE:180 00 AM PC) CHLORIDE:18 1298 EDT 87996 Alprazolam ALPRAZ 06/24/ TABLET 60 complet ALPRA ZOLAM [facility] (St 0.25 MG OLAM:3 2019 ed [facility] Tablet 44763 12:00: Medic al, ALPRAZOLAM: 00 AM PC) [id number] EDT Alprazolam ALPRAZ 06/24/ TABLET 60 complet ALPRA ZOLAM [facility] (St 0.25 MG OLAM:3 2019 ed [facility] Tablet 54880 12:00: Medic al, ALPRAZOLAM: 00 AM PC) [id number] EDT Hydrochloro HYDROC 03/20/ TABLET 90 complet HYDR OCHLOROT [facility] (St thiazide 25 HLOROT 2019 ed HIAZIDE [facility] Oral HIAZID 12:00: Medical, Tablet E:3107 00 AM PC) HYDROCHLORO 98 EST THIAZIDE:31 0798 Hydrochloro HYDROC 03/20/ TABLET 90 complet HYDR OCHL[place]OT [facility] (St thiazide 25 HLOROT 2019 ed HIAZIDE [facility] MG Oral HIAZID 12:00: Medical, Tablet E:3107 00 AM PC) HYDROCHLORO 98 EST THIAZIDE:31 0798 Insurance Providers Payer name Policy type Policy ID Covered Covered constitution party's Policy P wilma / Coverage constitution party ID relationship to Reeder Inf ormation type reeder MEDICARE [id number] SP [id number] M[facility]IC[facility] [id number] SP [id number] CARE [place] [id number] PART B DOWNSTATE AARP MEDICARE [id number] [place]LE[place] [id number] 1 [id number] PART B [place] MEDICARE [id number] SP [id number] MEDICARE [id number] SP [id number] AAR HEALTH [id number] SP [id number] CARE OPTIONS AAR HE[facility] [id number] SP [id number] CARE OPTIONS AAR HEALTH [id number] SP [id number] CARE [employer]IONS MEDICARE [id number] SP [id number] A Problems, Conditions, and Diagnoses Code Display Name Description Problem Type Effective Data Sour ce(s) Dates Z13.89 Encounter for ENCOUNTER FOR Problem 04/11/2019 MED[facility] ( St screening for SCREENING FOR 12:00:00 AM [facility], other disorder OTHER DISORDER EST PC) Z01.818 Encounter for ENCOUNTER FOR Problem 04/11/2019 MED[facility] ( St other OTHER 12:00:00 AM [facility], preprocedural PREPROCEDURAL EST PC) examination EXAMINATION Z13.89 Encounter for ENCOUNTER FOR Problem 04/11/2019 [...] PC) unspecified female UNSPECIFIED FEMALE breast BREAST C50.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 Problem 0 [facility] ([address] of unspecified OF UNSPECIFIED 12:00:00 AM [facility], site of SITE OF EST PC) unspecified female UNSPECIFIED FEMALE breast BREAST J06.9 Acute upper ACUTE UPPER Problem 03/05/2019 MED[facility] (St respiratory RESPIRATORY 12:00:00 AM [facility], infection, INFECTION, EST PC) unspecified UNSPECIFIED J06.9 Acute upper ACUTE UPPER Problem 03/05/2019 [facility] (St respiratory RESPIRATORY 12:00:00 AM [facility], infection, INFECTION, EST PC) unspecified UNSPECIFIED B37.0 Candidal CANDIDAL Problem 02/07/2019 MED[facility] (St stomatitis STOMATITIS 12:00:00 AM [facility], EST PC) B37.0 Candidal CANDIDAL Problem 02/07/2019 MED[facility] (St stomatitis STOMATITIS 12:00:00 AM [facility], EST PC) J20.8 Acute bronchitis ACUTE BRONCHITIS Problem 01/31/2019 ME DGEN (St due to other DUE TO OTHER 12:00:00 AM [facility] dical, specified SPECIFIED EST PC) organisms ORGANISMS J20.8 Acute bronchitis ACUTE BRONCHITIS Problem 01/31/2019 ME DGEN (St due to other DUE TO OTHER 12:00:00 AM [facility] d[facility], specified SPECIFIED EST PC) organisms ORGANISMS 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 Diagnosis 0 [place] other parts of OTHER PARTS OF 12:56:00 PM Count y Health mouth MOUTH EDT [employer] R89.7 Abnormal ABNORMAL HISTOLOG Diagnosis 06/08/2019 [facility] histological FINDINGS IN 12:56:00 PM On license of [facility] findings in SPECIMENS FROM OT EDT Care [...] GEN ([facility] medications (procedure) 12:00:00 AM EDT edical, ) Documentation of current 11/28/2019 MED GEN ([facility] medications (procedure) 12:00:00 AM EDT edical, PC) Documentation of current 11/28/2019 MED GEN ([facility] medications (procedure) 12:00:00 AM EDT edical, PC) OFFICE OUTPATIENT VISIT 25 11/28/2019 EDGEN ([facility] MINUTES 12:00:00 AM EDT Medical, ) ECG ROUTINE ECG W/LEAST 12 11/28/2019 EDGEN ([facility] LDS W/I&R 12:00:00 AM EDT Medical, ) Documentation of current 11/28/2019 MED GEN ([facility] medications (procedure) 12:00:00 AM EDT edical, PC) Documentation of current 11/28/2019 MED GEN ([facility] medications (procedure) 12:00:00 AM EDT edical, PC) Documentation of current 11/28/2019 MED GEN ([facility] medications (procedure) 12:00:00 AM EDT edical, ) Documentation of current 11/28/2019 MED GEN ([facility] medications (procedure) 12:00:00 AM EDT edical, PC) ECG ROUTINE ECG W/LEAST 12 11/28/2019 PREETHIN ([facility] LDS W/I&R 12:00:00 AM EDT Medical, ) Documentation of current 04/11/2019 MED GEN ([facility] medications (procedure) 12:00:00 AM EST nora, PC) Documentation of current 04/11/2019 MED GEN ([facility] medications (procedure) 12:00:00 AM EST leoical, PC) Documentation of current 04/11/2019 MED GEN ([facility] medications (procedure) 12:00:00 AM EST leoical, PC) Documentation of current 04/11/2019 MED GEN ([facility] medications (procedure) 12:00:00 AM EST edical, PC) Documentation of current 04/11/2019 MED GEN ([facility] medications (procedure) 12:00:00 AM EST leoical, PC) Documentation of current 04/11/2019 MED GEN ([facility] medications (procedure) 12:00:00 AM EST M edical, PC) Documentation of current 04/11/2019 MED GEN ([facility] medications (procedure) 12:00:00 AM EST Antonio melendez, PC) OFFICE OUTPATIENT VISIT 15 04/11/2019 Antonio MERINO ([facility] MINUTES 12:00:00 AM EST Medical, PC) Documentation of current 04/11/2019 MED GEN ([facility] medications (procedure) 12:00:00 AM EST Antonio melendez, PC) Documentation of current 04/11/2019 MED GEN ([facility] medications (procedure) 12:00:00 AM EST Antonio melendez, PC) Documentation of current 04/11/2019 MED GEN ([facility] medications (procedure) 12:00:00 AM EST Antonio melendez, PC) Documentation of current 04/11/2019 MED GEN ([facility] medications (procedure) 12:00:00 AM EST Antonio melendez, PC) Documentation of current 04/11/2019 MED GEN ([facility] medications (procedure) 12:00:00 AM EST Antonio melendez, PC) Documentation of current 04/11/2019 MED GEN ([facility] medications (procedure) 12:00:00 AM EST Antonio melendez, PC) Documentation of current 04/11/2019 MED GEN ([facility] medications (procedure) 12:00:00 AM EST Antonio melendez, PC) OFFICE OUTPATIENT VISIT 15 04/11/2019 Antonio MERINO ([facility] MINUTES 12:00:00 AM JERO Medical, PC) Documentation of current 04/04/2019 MED GEN ([facility] medications (procedure) 12:00:00 AM EST Antonio melendez, PC) Documentation of current 04/04/2019 MED GEN ([facility] medications (procedure) 12:00:00 AM EST Antonio melendez, PC) OFFICE OUTPATIENT VISIT 25 04/04/2019 Antonio MERINO ([facility] MINUTES 12:00:00 AM EST Medical, PC) Documentation of current 04/04/2019 MED GEN ([facility] medications (procedure) 12:00:00 AM EST Antonio melendez, PC) Documentation of current 04/04/2019 MED GEN ([facility] medications (procedure) 12:00:00 AM EST Antonio melendez, PC) OFFICE OUTPATIENT VISIT 25 04/04/2019 Antonio MERINO ([facility] MINUTES 12:00:00 AM EST Medical, PC) Documentation of current 03/05/2019 MED GEN ([facility] medications (procedure) 12:00:00 AM EST Antonio melendez, PC) Documentation of current 03/05/2019 MED GEN ([facility] medications (procedure) 12:00:00 AM EST Antonio melendez, PC) Documentation of current 03/05/2019 MED GEN ([facility] medications (procedure) 12:00:00 AM EST Antonio melendez, PC) Documentation of current 03/05/2019 MED GEN ([facility] medications (procedure) 12:00:00 AM JERO melendez, PC) Documentation of current 03/05/2019 MED GEN ([facility] medications (procedure) 12:00:00 AM EST Antonio melendez, PC) Documentation of current 03/05/2019 MED GEN ([facility] medications (procedure) 12:00:00 AM EST Antonio melendez, PC) Documentation of current 03/05/2019 MED GEN ([facility] medications (procedure) 12:00:00 AM EST Antonio melendez, PC) OFFICE OUTPATIENT VISIT 15 03/05/2019 Antonio MERINO ([facility] MINUTES 12:00:00 AM JERO Fiore, PC) Documentation of current 03/05/2019 MED GEN ([facility] medications (procedure) 12:00:00 AM EST Antonio melendez, PC) Documentation of current 03/05/2019 MED GEN ([facility] medications (procedure) 12:00:00 AM EST Antonio melendez, PC) Documentation of current 03/05/2019 MED GEN ([facility] medications (procedure) 12:00:00 AM EST Antonio melendez, PC) Documentation of current 03/05/2019 MED GEN ([facility] medications (procedure) 12:00:00 AM EST Antonio melendez, PC) Documentation of current 03/05/2019 MED GEN ([facility] medications (procedure) 12:00:00 AM EST Antonio melendez, PC) Documentation of current 03/05/2019 MED GEN ([facility] medications (procedure) 12:00:00 AM EST Antonio melendez, PC) Documentation of current 03/05/2019 MED GEN ([facility] medications (procedure) 12:00:00 AM EST Antonio melendez, PC) OFFICE OUTPATIENT VISIT 15 03/05/2019 Antonio ORON ([facility] MINUTES 12:00:00 AM JERO Medical, PC) Documentation of current 02/14/2019 MED GEN [...] AM JERO Fiore, PC) Documentation of current 02/14/2019 MED GEN [...] PC) OFFICE OUTPATIENT VISIT 15 02/14/2019 Antonio ORON ([facility] MINUTES 12:00:00 AM JERO Fiore, PC) [...] ([facility] medications (procedure) 12:00:00 AM JERO melendez, HARRY) Documentation of current 02/07/2019 MED GEN ([facility] [...] ([facility] medications (procedure) 12:00:00 AM HARRY Wyman) OFFICE OUTPATIENT VISIT 15 02/07/2019 Antonio MERINO ([facility] MINUTES 12:00:00 AM HARRY Jones) Documentation of current 01/31/2019 MED GEN ([facility] medications (procedure) 12:00:00 AM HARRY Wyman) Documentation of current 01/31/2019 MED GEN ([facility] medications (procedure) 12:00:00 AM JERO melendez PC) Documentation of current 01/31/2019 MED GEN ([facility] medications (procedure) 12:00:00 AM JERO melendez PC) Documentation of current 01/31/2019 MED GEN ([facility] medications (procedure) 12:00:00 AM JERO melendez, PC) Documentation of current 01/31/2019 MED GEN [...] ([facility] medications (procedure) 12:00:00 AM JERO melendez, HARRY) OFFICE OUTPATIENT VISIT 15 01/31/2019 Antonio MERINO ([facility] MINUTES 12:00:00 AM JERO Fiore, PC) Documentation of current 01/31/2019 MED GEN ([facility] medications (procedure) 12:00:00 AM JERO melendez, PC) Documentation of current 01/31/2019 MED GEN ([facility] medications (procedure) 12:00:00 AM JERO melendez PC) Documentation of current 01/31/2019 MED GEN ([facility] medications (procedure) 12:00:00 AM JERO melendez, PC) Documentation of current 01/31/2019 MED GEN ([facility] medications (procedure) 12:00:00 AM JERO melendez PC) Documentation of current 01/31/2019 MED GEN ([facility] medications (procedure) 12:00:00 AM JERO melendez PC) Documentation of current 01/31/2019 MED GEN ([facility] medications (procedure) 12:00:00 AM JERO melendez PC) Documentation of current 01/31/2019 MED GEN ([facility] medications (procedure) 12:00:00 AM JERO melendez, PC) Documentation of current 01/31/2019 MED GEN ([facility] medications (procedure) 12:00:00 AM JERO melendez, PC) Documentation of current 01/31/2019 MED GEN ([facility] medications (procedure) 12:00:00 AM JERO melendez, PC) OFFICE OUTPATIENT VISIT 15 01/31/2019 Antonio MERINO ([facility] MINUTES 12:00:00 AM JERO Fiore, PC) Documentation of current 12/27/2018 MED GEN ([facility] medications (procedure) 12:00:00 AM EDT [facility], ) Documentation of current 12/27/2018 MED GEN ([facility] medications (procedure) 12:00:00 AM EDT [facility]) Influenza virus vaccine, 12/27/2018 MED [facility] ([facility] split virus, when 12:00:00 AM [facility]) administered to individuals 3 years of age and older, for intramuscular use (flulaval) Administration of 12/27/2018 [facility] ([facility] influenza virus vaccine 12:00:00 AM EDT [facility], ) Documentation of current 12/27/2018 MED GEN ([facility] medications (procedure) 12:00:00 AM EDT [facility], ) Documentation of current 12/27/2018 MED GEN ([facility] medications (procedure) 12:00:00 AM EDT [facility]) Influenza virus vaccine, 12/27/2018 MED GEN ([facility] split virus, when 12:00:00 AM [facility]) administered to individuals 3 years of age and older, for intramuscular use (flulaval) Administration of 12/27/2018 [facility] ([facility] influenza virus vaccine 12:00:00 AM T [facility]) Results ID Date Data Source [id number] 12/14/2019 11:30:00 AM EDT [facility] Name Value Range Interpretation Description Data Sup porting Code Source(s) Document(s ) SARS [facility] coronavirus 2 RNA This lab was ordered by ALEKSANDR flores [facility] and reported by [facility]. ID Date Data Source [id number] 10/15/2019 04:07:00 PM EDT [facility] Name Value Range Interpretation Code Description Data Treva rce(s) Supporting Document(s ) 2019-nCoV [facility] RNA XXX ANGELES+probe- Imp This lab was ordered by BAKARI and reported by [facility]. 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 Alcohol Use Social Smoking 11/28/2019 Former smoker completed Former smoker MED[facility] ( St 12:00:00 AM EDT [facility], ) Vital Signs ID Date Data Source UNK Name Value Range Interpretation Code Description Data Source(s) Heart rate 88 /min 88 /min MED[facility] ([facility] [place] [place]) Respiratory rate 14 /min 14 /min MED[facility] ( [facility] [place] [place]) Body mass index 20.5 kg/m2 20.5 kg/m2 MED[facility] (S t (BMI) [Ratio] [facility], ) Diastolic blood 70 mm[Hg] 70 mm[Hg] MEDGEN (S t pressure [facility]) Systolic blood 124 mm[Hg] 124 mm[Hg] MEDGEN ([facility] [place] [place]) Body weight 116 lb 116 lb MED[facility] ([facility] [place] [place]) Body height 63 in 63 in MED[facility] ([facility] [place] [place]) Heart rate 88 /min 88 /min MED[facility] ([facility] [place] [place]) Respiratory rate 14 /min 14 /min MEDGEN ( [facility] [place] [place]) Body mass index 20.5 kg/m2 20.5 kg/m2 [facility] (S t (BMI) [Ratio] [facility] [place] Diastolic blood 70 mm[Hg] 70 mm[Hg] MEDGEN (S t pressure [facility] , ) Systolic blood 124 mm[Hg] 124 mm[Hg] MEDGEN (St [facility] [place] , ) Body weight 116 lb 116 lb MEDGEN ([facility] [place] [place]) Body height 63 in 63 in MEDGEN ([facility] [place] [place]) Heart rate 96 /min 96 /min MEDGEN ([facility] , ) Respiratory rate 15 /min 15 /min MEDGEN ( [facility] , ) Body temperature 98.1 F 98.1 F MEDGEN ( [facility] [place] [place]) Body mass index 20.4 kg/m2 20.4 kg/m2 MEDGEN (S t (BMI) [Ratio] [facility], ) Diastolic blood 72 mm[Hg] 72 mm[Hg] MEDGEN (S t pressure [facility] , ) Systolic blood 128 mm[Hg] 128 mm[Hg] MEDGEN ([facility] , ) Body weight 115 lb 115 lb MEDGEN ([facility] [place] [place]) Body height 63 in 63 in MEDGEN ([facility] [place] [place]) Heart rate 96 /min 96 /min MED[facility] ([facility] [place] [place]) Respiratory rate 15 /min 15 /min MED[facility] ( [facility] , ) Body temperature 98.1 F 98.1 F MEDGEN ( [facility] [place] [place]) Body mass index 20.4 kg/m2 20.4 kg/m2 MEDGEN (S t (BMI) [Ratio] [facility], ) Diastolic blood 72 mm[Hg] 72 mm[Hg] MEDGEN (S t pressure [facility] , ) Systolic blood 128 mm[Hg] 128 mm[Hg] MEDGEN ([facility] , ) Body weight 115 lb 115 lb MEDGEN ([facility] [place] [place]) Body height 63 in 63 in MEDGEN ([facility] , ) Diastolic blood 74 mm[Hg] 74 mm[Hg] MEDGEN (S t pressure [facility] , ) Systolic blood 128 mm[Hg] 128 mm[Hg] MEDGEN ([facility] , ) Heart rate 104 /min 104 /min [facility] ([facility] , ) Respiratory rate 16 /min 16 /min [facility] ( [facility] , ) Diastolic blood 74 mm[Hg] 74 mm[Hg] MEDGEN (S t pressure [facility] , ) Systolic blood 128 mm[Hg] 128 mm[Hg] MEDGEN (St pressure [facility] , ) Heart rate 104 /min 104 /min MED[facility] ([facility] , ) Respiratory rate 16 /min 16 /min [facility] ( [facility] , ) Heart rate 92 /min 92 /min [facility] ([facility] , ) Respiratory rate 16 /min 16 /min [facility] ( [facility] , ) Body mass index 19.8 kg/m2 19.8 kg/m2 MED[facility] (S t (BMI) [Ratio] [facility], ) Diastolic blood 72 mm[Hg] 72 mm[Hg] MEDGEN (S t pressure [facility] , ) Systolic blood 142 mm[Hg] 142 mm[Hg] MED[facility] (St pressure [facility] , ) Body weight 112 lb 112 lb MED[facility] ([facility] , ) Body height 63 in 63 in [facility] ([facility] , ) Heart rate 92 /min 92 /min [facility] ([facility] , ) Respiratory rate 16 /min 16 /min [facility] ( [facility] , ) Body mass index 19.8 kg/m2 19.8 kg/m2 MEDGEN (S t (BMI) [Ratio] [facility], ) Diastolic blood 72 mm[Hg] 72 mm[Hg] MEDGEN (S t pressure [facility] , ) Systolic blood 142 mm[Hg] 142 mm[Hg] MEDGEN (St pressure [facility] , ) Body weight 112 lb 112 lb MED[facility] ([facility] , ) Body height 63 in 63 in [facility] ([facility] , ) Heart rate 92 /min 92 /min [facility] ([facility] , ) Respiratory rate 16 /min 16 /min MED[facility] ( [facility] , ) Diastolic blood 62 mm[Hg] 62 mm[Hg] MEDGEN (S t pressure [facility] , ) Systolic blood 120 mm[Hg] 120 mm[Hg] MEDGEN (St pressure [facility] , ) Heart rate 92 /min 92 /min MEDGEN ([facility] , ) Respiratory rate 16 /min 16 /min MEDGEN ( [facility] [place]) Diastolic blood 62 mm[Hg] 62 mm[Hg] MEDGEN (S t pressure [facility]) Systolic blood 120 mm[Hg] 120 mm[Hg] MEDGEN ([facility] , ) Heart rate 82 /min 82 /min MEDGEN ([facility] , ) Respiratory rate 16 /min 16 /min MEDGEN ( [facility] [place] [place]) Body temperature 97.5 F 97.5 F MEDGEN ( [facility] [place] [place]) Inhaled oxygen 99 % 99 % MEDGEN ([facility], ) Diastolic blood 76 mm[Hg] 76 mm[Hg] MEDGEN (S t [facility] , ) Systolic blood 140 mm[Hg] 140 mm[Hg] MEDGEN ([facility] , ) Heart rate 82 /min 82 /min MEDGEN ([facility] , ) Respiratory rate 16 /min 16 /min MEDGEN ( [facility] [place] [place]) Body temperature 97.5 F 97.5 F MEDGEN ( [facility] [place] [place]) Inhaled oxygen 99 % 99 % MEDGEN ([facility], ) Diastolic blood 76 mm[Hg] 76 mm[Hg] MEDGEN (S t [facility] , ) Systolic blood 140 mm[Hg] 140 mm[Hg] MEDGEN ([facility] [place] [place]) Heart rate 120 /min 120 /min MEDGEN ([facility] [place] [place]) Respiratory rate 18 /min 18 /min MEDGEN ( [facility] [place] [place]) Body temperature 98.1 F 98.1 F MEDGEN ( [facility] [place] [place]) Body mass index 19.8 kg/m2 19.8 kg/m2 MEDGEN (S t (BMI) [Ratio] [facility], ) Diastolic blood 50 mm[Hg] 50 mm[Hg] MEDGEN (S t pressure [facility]) Systolic blood 116 mm[Hg] 116 mm[Hg] MEDGEN ([facility]) Body weight 112 lb 112 lb MEDGEN ([facility] [place] [place]) Body height 63 in 63 in [facility] ([facility] [place]) Heart rate 120 /min 120 /min [facility] ([facility] - [place], [place]) Respiratory rate 18 /min 18 /min [facility] ( [facility] - [place], [place]) Body temperature 98.1 F 98.1 F [facility] ( [facility] - [place], [place]) Body mass index 19.8 kg/m2 19.8 kg/m2 [facility] (S t (BMI) [Ratio] [facility]) Diastolic blood 50 mm[Hg] 50 mm[Hg] [facility] (S t pressure [facility] [place]) Systolic blood 116 mm[Hg] 116 mm[Hg] [facility] ([facility] - [place], [place]) Body weight 112 lb 112 lb [facility] ([facility] - [place], [place]) Body height 63 in 63 in [facility] ([facility] - [place], [place])
[2019-12-18] MEDS ORDERED: OXYMETAZOLINE 0.05% NASAL SOLUTION 15 ML BOTTLE NS ONE (09:26)
[2019-12-18] MEDS ORDERED: THROMBIN (RECOMBINANT) 5,000 UNIT VIAL TP ONE (09:27)
[2019-12-18] MEDS ORDERED: POVIDONE-IODINE 5% OPHTHALMIC PREP 30 ML SOLUTION ONE (09:27)
[2019-12-18] MEDS ORDERED: BUPIVACAINE HCL/PF 0.5% (5MG/ML) 10 ML VIAL ONE (09:27)
[2019-12-18] MEDS ORDERED: ERYTHROMYCIN 0.5% OPHTHALMIC OINTMENT 3.5 GM TUBE ONE (09:27)
[2019-12-18] MEDS ORDERED: TETRACAINE 0.5% OPHTH SOLN 2 ML BOTTLE ONE (09:27)
[2019-12-18] MEDS ORDERED: LIDOCAINE 1%/EPI 1:100000 (20 ML MULTI DOSE VIAL) ONE (09:27)
[2019-12-18] MEDS ORDERED: LIDOCAINE HCL/PF 2% SDV 5ML VIAL ONE (09:34)
[2019-12-18] MEDS ORDERED: ONDANSETRON 4 MG/2 ML VIAL ONE (09:34)
[2019-12-18] MEDS ORDERED: DEXAMETHASONE SOD PHOSPHATE 4 MG/1 ML VIAL ONE (09:34)
[2019-12-18] MEDS ORDERED: MIDAZOLAM HCL 2 MG/2 ML SINGLE DOSE VIAL ONE (09:34)
[2019-12-18] MEDS ORDERED: PROPOFOL 20 ML ONE (09:34)
[2019-12-18] MEDS ORDERED: KETOROLAC TROMETHAMINE 30 MG/1 ML VIAL ONE (09:34)
[2019-12-18] MEDS ORDERED: ceFAZolin SODIUM 1 GM VIAL ONE (09:34)
[2019-12-18] MEDS ORDERED: LIDOCAINE HCL 2% JELLY (5 ML/TUBE) ONE (09:36)
[2019-12-18] MEDS ORDERED: EPHEDRINE SULFATE/0.9% NACL/PF 50 MG/10 ML SYRINGE NR ONE (10:12)
[2019-12-18] MEDS ORDERED: SEVOFLURANE 250 ML BTL ONE (10:15)
[2019-12-18] MEDS ORDERED: ONDANSETRON 4 MG/2 ML VIAL IVPUSH PRN (11:15)
[2019-12-18] MEDS ORDERED: oxyCODONE HCL 5 MG TABLET PO PRN ×2 (11:15)
[2019-12-18] MEDS ORDERED: PROMETHAZINE HCL 25 MG/1 ML VIAL IVPB PRN (11:15)
--- NOTE | 2019-12-18 12:13 | OP ---
DATE OF OPERATION: 12/18/2019 PREOPERATIVE DIAGNOSIS: Nasolacrimal obstruction with epiphora, left. POSTOPERATIVE DIAGNOSIS: Nasolacrimal obstruction with epiphora, left. PROCEDURE: 1. Dacryocystorhinostomy, left. 2. Lacrimal sac biopsy, left. 3. Partial ethmoidectomy, left. 4. Silicone intubation, left lacrimal system. 5. Endoscopy. SURGEON: Francisco Javier Sun MD ANESTHESIA: General. COMPLICATIONS: None. ESTIMATED BLOOD LOSS: 10-15 mL. OPERATIVE REPORT: Patient brought to the operating room, placed on the operating room table. Vital signs monitored by Anesthesia. Tetracaine was placed in both eyes. A line was marked in the left tear trough and the medial canthal tendon down to the tear trough. Patient was placed under LM anesthesia. Timeout was performed, and a 50/50 mixture of 2% Xylocaine and 1:100,000 epinephrine and 0.5% Marcaine was injected in the area of the tear trough down to the anterior lacrimal crest subcutaneously, medial third of the upper and lower lid, lateral wall of the nose. Then, under excellent visualization, the mucosa of the middle meatus, the middle turbinate, the external nares, and the septum were injected with 2% xylocaine and 1:100,000 epinephrine in the left nose. Nostril and naris were packed in the middle meatus area with cottonoids moistened with Afrin. The patient was prepped and draped in usual fashion, exposing both eyes. The right eye was taped closed with a Steri-Strip. Tear trough incision was made on the left side, and this was carried down through the subcutaneous tissue with blunt spreading with a Ray scissors until the anterior lacrimal crest was obtained and the medial canthal tendon was identified. The anterior limb of the medial canthal tendon at the periosteum overlying the anterior lacrimal crest was incised with a Eastland needle. It was then reflected laterally, exposing the lacrimal sac fossa, and the bluish lacrimal bone was identified. It was penetrated with a hemostat, and then, up-biting Kerrison rongeurs were used to create an osteotomy extending from the nasolacrimal duct to the medial canthal tendon and from the anterior lacrimal crest to the posterior lacrimal crest. There was a smoothly-covered air cell lined with mucosa encountered which was the low-lying ethmoid. This was extirpated with a scalpel blade and a scissors and submitted for pathologic study along with some of the air cells. Now, this opened the lacrimal sac fossa into the middle meatus. The upper and lower puncta were dilated, intubated with probes, tenting the medial wall sac medially. Sac was incised with a 12 blade and a Julian scissors, entering the sac, allowing the probes to enter. Anterior and posterior lacrimal sac flaps were created with relaxing incisions. The posterior lacrimal sac flap was biopsied and reflected posteriorly. The anterior lacrimal sac flap was secured with mattressed 4-0 chromic suture. The system was intubated with Palomares intubation probes which were retrieved from left external naris with a Palomares hook, and the silicone stent then trailed freely through the lacrimal system after the internal canaliculus was dilated. The anterior lacrimal sac flap was now secured to the periosteum anterior to the osteotomy with a mattressed 4-0 chromic and with 2 interrupted 4-0 chromic sutures. Antibiotic irrigation was used throughout the case. The muscle layers were closed with 6-0 Vicryl suture, and the skin was closed with running interrupted 6-0 plain suture with plastic technique. The stents were removed from the probes, tied with locking knots, and secured to the left external naris with a single 6-0 Prolene with minimal tension on the loop in the left medial canthus. First, the endoscope was introduced, demonstrated good hemostasis and good opening of the ostium into the middle meatus. The axilla of the middle turbinate was somewhat close to the ostium. Therefore, the turbinate was then fractured medially away from the ostium with a Marion periosteal elevator under endoscopic guidance. Afrin was sprayed in the nose. Erythromycin ointment was placed on the sutures, and the patient was awakened from anesthesia and taken to the recovery room. FRANCISCO JAVIER SUN M.D. [id number]
[2019-12-18 12:24] VITALS: TEMP 98.2
[2019-12-18 13:10] VITALS: BP 121/71; PULSE 80
--- NOTE | 2019-12-20 17:18 | PATH ---
Surgical Pathology Report Patient Name: PAOAL BARAKAT [facility]. Rec. #: [id number] /Age/Gender: 1940 (Age: 79) / F Account: [id number] Location: [facility] Taken: 12/18/2019 Received: 12/18/2019 Reported: 12/20/2019 Physicians: Cortez Kwan Specimen(s) Received A: ETHMOID B: LEFT LACRIMAL SAC Clinical History Blocked tear duct Final Diagnosis A. ETHMOID, EXCISION: BENIGN RESPIRATORY MUCOSA AND BONE WITH FOCAL CHRONIC SINUSITIS. B. LEFT LACRIMAL SAC, BIOPSY: PORTION OF FIBROCONNECTIVE TISSUE. NO EPITHELIAL LINING IDENTIFIED. Electronically Signed Real Rashid M.D. Gross Description A. Received in formalin labeled "ethmoid," is a 0.9 x 0.6 x 0.4 cm ferro wright portion of soft tissue and cartilage. The specimen is bisected and entirely submitted in one cassette, following decalcification. B. Received in formalin labeled "lacrimal sac left," is a 0.5 x 0.2 x 0.1 cm ferro wright, irregular portion of soft tissue. The specimen is submitted in toto in one cassette. /12/19/2019 saudi12/19/2019
== END 2019-12-18 12:45 | disposition home or self-care (01) ==
LOC: FASU 07:32
PROVIDERS: ATTEND Ophthalmology
PROC: 09BV0ZZ Excision of Left Ethmoid Sinus, Open Approach (ICD-10-PCS; 2019-12-18)
PROC: 081Y0Z3 Bypass Left Lacrimal Duct to Nasal Cavity, Open Approach (ICD-10-PCS; principal; 2019-12-18 10:11)
DX: H04.512 Dacryolith of left lacrimal passage (principal); H04.222 Epiphora due to insufficient drainage, left side
CPT/HCPCS: 88304-TC; 94760

== ENCOUNTER 2021-01-06 08:56 | Day surgery (SDC) | payer OTHER, MEDICARE ==
[2021-01-01 11:09] VITALS: BMI 20.9
[2021-01-06] MEDS ORDERED: PROPOFOL 20 ML ONE ×2 (11:31)
[2021-01-06] MEDS ORDERED: SUCCINYLCHOLINE CHLORIDE 200 MG/10 ML SYRINGE ONE (11:31)
[2021-01-06] MEDS ORDERED: MIDAZOLAM HCL 2 MG/2 ML SINGLE DOSE VIAL ONE (11:31)
[2021-01-06] MEDS ORDERED: PROMETHAZINE HCL 25 MG/1 ML VIAL IVPUSH PRN (13:02)
[2021-01-06] MEDS ORDERED: ONDANSETRON 4 MG/2 ML VIAL IVPUSH PRN (13:02)
[2021-01-06] MEDS ORDERED: ACETAMINOPHEN 325 MG TABLET (FP) PO PRN (13:02)
[2021-01-06 14:48] VITALS: TEMP 98
[2021-01-06 14:49] VITALS: BP 131/68; PULSE 81
== END 2021-01-06 14:35 | disposition home or self-care (01) ==
LOC: FASU 08:56
PROVIDERS: ATTEND Ophthalmology
PROC: 08SQ0ZZ Reposition Right Lower Eyelid, Open Approach (ICD-10-PCS; principal; 2021-01-06 12:03)
DX: H02.032 Senile entropion of right lower eyelid (principal)
CPT/HCPCS: 94760

== ENCOUNTER 2021-08-14 04:07 | Day surgery (SDC) | payer OTHER, MEDICARE ==
[~2021-08-14 04:07] MED LIST: BUPIVACAINE HCL/PF 0.75% 10 ML VIAL NR ONE
[2021-08-14] MEDS ORDERED: BUPIVACAINE HCL/PF 0.75% 10 ML VIAL ONE (07:34)
[2021-08-14] MEDS ORDERED: LIDOCAINE HCL 1% PRESERVATIVE FREE - 30ML VIAL IJ ONE (11:23)
[2021-08-14] MEDS ORDERED: BUPIVACAINE HCL/PF 0.75% 10 ML VIAL NR ONE (11:30)
[2021-08-14 11:48] VITALS: BP 152/77; PULSE 97; TEMP 97.8
== END 2021-08-14 12:14 | disposition home or self-care (01) ==
LOC: JASU-SURG 04:07
PROVIDERS: ATTEND Pain Medicine Pain Medicine
PROC: 3E0T33Z Introduction of Anti-inflammatory into Peripheral Nerves and Plexi, Percutaneous Approach (ICD-10-PCS; 2021-08-14)
PROC: 3E0T3BZ Introduction of Anesthetic Agent into Peripheral Nerves and Plexi, Percutaneous Approach (ICD-10-PCS; principal; 2021-08-14 10:15)
DX: M47.816 Spondylosis without myelopathy or radiculopathy, lumbar region (principal)
CPT/HCPCS: 76000-TC-FY

== ENCOUNTER 2021-11-20 05:15 | Day surgery (SDC) | payer OTHER, MEDICARE ==
[~2021-11-20 05:15] MED LIST changes: -BUPIVACAINE HCL/PF 0.75% 10 ML VIAL NR ONE; +DEXAMETHASONE SOD PHOSPHATE 10 MG/1 ML VIAL IVPUSH ONE; +IOHEXOL 180 MG/1 ML ML IJ ONE; +LIDOCAINE 1% P/F 10 MG/ML VIAL INF ONE
[2021-11-20] MEDS ORDERED: BUPIVACAINE HCL/PF 0.75% 10 ML VIAL ONE (07:37)
[2021-11-20] MEDS ORDERED: LIDOCAINE HCL/PF 1% SDV 5ML VIAL ONE (07:37)
[2021-11-20 10:02] VITALS: BMI 19.6
[2021-11-20] MEDS ORDERED: IOHEXOL 180 MG/1 ML ML IJ ONE (13:39)
[2021-11-20] MEDS ORDERED: LIDOCAINE 1% P/F 10 MG/ML VIAL INF ONE (13:39)
[2021-11-20] MEDS ORDERED: DEXAMETHASONE SOD PHOSPHATE 10 MG/1 ML VIAL IVPUSH ONE (13:39)
[2021-11-20 14:26] VITALS: BP 163/98; PULSE 80; RESP 16; TEMP 97.1
== END 2021-11-20 14:18 | disposition home or self-care (01) ==
LOC: JASU-SURG 05:15
PROVIDERS: ATTEND Pain Medicine Pain Medicine
PROC: BR16YZZ Fluoroscopy of Lumbar Facet Joint(s) using Other Contrast (ICD-10-PCS; 2021-11-20)
PROC: 3E0T3BZ Introduction of Anesthetic Agent into Peripheral Nerves and Plexi, Percutaneous Approach (ICD-10-PCS; principal; 2021-11-20 11:30)
DX: M47.816 Spondylosis without myelopathy or radiculopathy, lumbar region (principal)
CPT/HCPCS: 76000-TC-FY; J1100

== ENCOUNTER 2021-12-15 04:37 | Day surgery (SDC) | payer OTHER, MEDICARE ==
[2021-12-15 11:39] VITALS: RESP 20
[2021-12-15] MEDS ORDERED: BUPIVACAINE HCL/PF 0.75% 10 ML VIAL ONE (11:51)
[2021-12-15] MEDS ORDERED: LIDOCAINE HCL/PF 1% SDV 5ML VIAL ONE (11:51)
[2021-12-15] MEDS ORDERED: SODIUM CHLORIDE 0.9% P/F 10 ML VIAL IJ ONE (11:56)
[2021-12-15] MEDS ORDERED: LIDOCAINE HCL/PF 2% SDV 5ML VIAL ONE (11:56)
[2021-12-15] MEDS ORDERED: LIDOCAINE HCL/PF 2% SDV 5ML VIAL INF ONE (13:19)
[2021-12-15] MEDS ORDERED: BUPIVACAINE HCL/PF 0.75% 10 ML VIAL NR ONE (13:23)
[2021-12-15] MEDS ORDERED: LIDOCAINE 1% P/F 10 MG/ML VIAL INF ONE (13:23)
[2021-12-15 14:15] VITALS: BP 136/74; PULSE 88; TEMP 98.2
== END 2021-12-15 14:50 | disposition home or self-care (01) ==
LOC: JASU-SURG 04:37
PROVIDERS: ATTEND Pain Medicine Pain Medicine
PROC: BR16YZZ Fluoroscopy of Lumbar Facet Joint(s) using Other Contrast (ICD-10-PCS; 2021-12-15)
PROC: 3E0T3TZ Introduction of Destructive Agent into Peripheral Nerves and Plexi, Percutaneous Approach (ICD-10-PCS; principal; 2021-12-15 13:00)
DX: M47.816 Spondylosis without myelopathy or radiculopathy, lumbar region (principal)
CPT/HCPCS: 76000-TC-FY

== ENCOUNTER 2022-01-29 04:13 | Day surgery (SDC) | payer OTHER, MEDICARE ==
[2022-01-28 10:43] VITALS: BMI 19.6
[2022-01-29] MEDS ORDERED: BUPIVACAINE HCL/PF 0.75% 10 ML VIAL ONE (07:12)
[2022-01-29] MEDS ORDERED: DEXAMETHASONE SOD PHOSPHATE 10 MG/1 ML VIAL ONE (07:12)
[2022-01-29] MEDS ORDERED: LIDOCAINE HCL/PF 1% SDV 5ML VIAL ONE (07:12)
[2022-01-29] MEDS ORDERED: LIDOCAINE HCL/PF 2% SDV 5ML VIAL ONE (07:12)
[2022-01-29] MEDS ORDERED: BUPIVACAINE HCL/PF 0.75% 10 ML VIAL NR ONE (09:52)
[2022-01-29] MEDS ORDERED: DEXAMETHASONE SOD PHOSPHATE 10 MG/1 ML VIAL IVPUSH ONE (09:52)
[2022-01-29] MEDS ORDERED: LIDOCAINE HCL 1% PRESERVATIVE FREE - 30ML VIAL IJ ONE ×2 (09:53)
[2022-01-29] MEDS ORDERED: LIDOCAINE HCL/PF 2% SDV 5ML VIAL INF ONE (09:55)
[2022-01-29 11:23] VITALS: RESP 16; TEMP 98.2
[2022-01-29 11:54] VITALS: BP 160/70; PULSE 84
== END 2022-01-29 11:45 | disposition home or self-care (01) ==
LOC: JASU-SURG 04:13
PROVIDERS: ATTEND Pain Medicine Pain Medicine
PROC: 3E0T3TZ Introduction of Destructive Agent into Peripheral Nerves and Plexi, Percutaneous Approach (ICD-10-PCS; principal; 2022-01-29 09:45)
PROC: BR16YZZ Fluoroscopy of Lumbar Facet Joint(s) using Other Contrast (ICD-10-PCS; 2022-01-29 09:45)
DX: M47.816 Spondylosis without myelopathy or radiculopathy, lumbar region (principal)
CPT/HCPCS: 76000-TC-FY; J1100

== ENCOUNTER 2022-04-09 04:13 | Day surgery (SDC) | payer OTHER, MEDICARE ==
[2022-04-07 13:37] VITALS: BMI 19.6
[~2022-04-09 04:13] MED LIST changes: +DEXAMETHASONE SOD PHOSPHATE 10 MG/1 ML VIAL IM ONE; -IOHEXOL 180 MG/1 ML ML IJ ONE; +IOHEXOL 180 MG/1 ML ML IT ONE
[2022-04-09] MEDS ORDERED: DEXAMETHASONE SOD PHOSPHATE 10 MG/1 ML VIAL ONE (07:29)
[2022-04-09] MEDS ORDERED: LIDOCAINE HCL/PF 1% SDV 5ML VIAL ONE (07:29)
[2022-04-09 10:56] VITALS: RESP 18
[2022-04-09 15:34] VITALS: BP 144/72; PULSE 89; TEMP 97.4
== END 2022-04-09 14:50 | disposition home or self-care (01) ==
LOC: JASU-SURG 04:13
PROVIDERS: ATTEND Pain Medicine Pain Medicine
PROC: 3E0R3BZ Introduction of Anesthetic Agent into Spinal Canal, Percutaneous Approach (ICD-10-PCS; 2022-04-09)
PROC: 3E0R33Z Introduction of Anti-inflammatory into Spinal Canal, Percutaneous Approach (ICD-10-PCS; principal; 2022-04-09 11:45)
DX: M48.061 Spinal stenosis, lumbar region without neurogenic claudication (principal)
CPT/HCPCS: 76000-TC-FY; J1100

== ENCOUNTER 2023-06-01 07:32 | Day surgery (SDC) | payer OTHER, MEDICARE ==
[2023-05-26 10:47] VITALS: BMI 20.5
[2023-06-01 07:54] VITALS: RESP 18
[2023-06-01] MEDS ORDERED: PROPOFOL 160 ML ONE (07:58)
[2023-06-01 08:54] VITALS: PULSE 67; TEMP 97.2
[2023-06-01 09:36] VITALS: BP 110/54
== END 2023-06-01 09:32 | disposition home or self-care (01) ==
LOC: FASU-ENDO 07:32
PROVIDERS: ATTEND Internal Medicine Gastroenterology
PROC: 0D5H8ZZ Destruction of Cecum, Via Natural or Artificial Opening Endoscopic (ICD-10-PCS; principal; 2023-06-01 08:19)
DX: Z12.11 Encounter for screening for malignant neoplasm of colon (principal); K55.20 Angiodysplasia of colon without hemorrhage; K57.30 Diverticulosis of large intestine without perforation or abscess without bleeding; Z86.010 Personal history of colon polyps; Z80.0 Family history of malignant neoplasm of digestive organs; R19.5 Other fecal abnormalities

== ENCOUNTER 2024-01-09 06:05 | Day surgery (SDC) | payer OTHER, MEDICARE ==
[2024-01-05 09:22] VITALS: BMI 21.9
[2024-01-09] MEDS ORDERED: VANCOMYCIN 1,000 MG VIAL (RESTRICTED TO ID ONLY) ONE (07:11)
[2024-01-09] MEDS ORDERED: TRANEXAMIC ACID 1000 MG/10 ML VIAL ONE (07:11)
[2024-01-09] MEDS ORDERED: BUPIVACAINE HCL/PF 0.5% (5 MG/ML) 30 ML VIAL IJ ONE (07:30)
[2024-01-09] MEDS ORDERED: DEXAMETHASONE SOD PHOSPHATE 10 MG/1 ML VIAL ONE (07:30)
[2024-01-09] MEDS ORDERED: PROPOFOL 40 ML ONE (07:34)
[2024-01-09] MEDS ORDERED: MIDAZOLAM HCL 2 MG/2 ML SINGLE DOSE VIAL ONE (07:34)
[2024-01-09] MEDS ORDERED: ROCURONIUM BROMIDE 50 MG/5 ML SYRINGE ONE (08:09)
[2024-01-09] MEDS ORDERED: ePHEDrine SULFATE 50 MG/1 ML AMPULE ONE (08:33)
[2024-01-09] MEDS ORDERED: ONDANSETRON 4 MG/2 ML VIAL IVPUSH PRN ×2 (09:11→09:59)
[2024-01-09] MEDS ORDERED: SUGAMMADEX SODIUM 200 MG/2 ML VIAL ONE (09:33)
[2024-01-09] MEDS ORDERED: MAG HYDROX/AL HYDROX/SIMETH 30 ML UNIT-DOSE CUP PO PRN (09:59)
[2024-01-09] MEDS ORDERED: FENTANYL CITRATE/PF 50 MCG/ML VIAL ONE (10:04)
[2024-01-09] MEDS ORDERED: VALACYCLOVIR HCL 500 MG PO PRN (10:05)
[2024-01-09] MEDS ORDERED: ACETAMINOPHEN INJECTION 100 ML ONE (10:08)
[2024-01-09] MEDS: ACETAMINOPHEN 1000 MG/100 ML BAG IVPB PRN (10:10)
[2024-01-09 10:30] LABS: HEMATOCRIT 30.1 % (32.4-45.2); MCH 35.8 pg (25.7-33.7); MCHC 33.3 g/dl (32.0-36.0); MEAN CELL VOLUME 107.5 fl (80-96); MEAN PLT VOLUME 8.7 fl (7.5-11.1); PLATELET COUNT 186.2 10^3/uL (134-434); RDW 13.5 % (11.6-15.6); WHITE BLOOD COUNT 5.8 10^3/uL (4.0-10.8)
[2024-01-09 10:52] VITALS: RESP 18
[2024-01-09] MEDS: PANTOPRAZOLE 40 MG TABLET PO SCH (13:57)
[2024-01-09] MEDS: SENNOSIDES/DOCUSATE COMBO (SENNA PLUS) TABLET (UD) PO SCH (13:57)
[2024-01-09] MEDS: GABAPENTIN 300 MG CAPSULE PO SCH (13:57)
[2024-01-09] MEDS: MULTIVITAMINS (DAILY MVI) TABLET (FP) PO SCH (13:57)
[2024-01-09] MEDS: LACTATED RINGERS SOLUTION 1,000 ML IV SCH (14:04)
[2024-01-09] MEDS: CEFAZOLIN 1 GM in DEXTROSE 5%-WATER - 50 ML IVPB SCH (16:29)
[2024-01-09] MEDS: oxyCODONE HCL 5 MG TABLET PO PRN (21:31)
[2024-01-10] MEDS: VANCOMYCIN/WATER FOR INJ (PEG) 1 GM/200 ML BAG IVPB ONE (09:19)
[2024-01-10] MEDS: amLODIPine BESYLATE 10 MG TABLET (FP) PO SCH (09:19)
[2024-01-10] MEDS: ASPIRIN COATED 81 MG TABLET.EC PO SCH (09:19)
[2024-01-10] MEDS: FERROUS SO4 325 MG TABLET (FP) PO SCH (09:19)
[2024-01-10 09:59] LABS: HEMATOCRIT 27.5 % (32.4-45.2); HEMOGLOBIN 9.2 GM/dL (10.7-15.3); MCH 35.7 pg (25.7-33.7); MCHC 33.3 g/dl (32.0-36.0); MEAN CELL VOLUME 107.2 fl (80-96); MEAN PLT VOLUME 8.8 fl (7.5-11.1); PLATELET COUNT 175 10^3/uL (134-434); RBC 2.57 M/mm3 (3.60-5.2); RDW 14.3 % (11.6-15.6); WHITE BLOOD COUNT 7.6 K/mm3 (4.0-10.0)
[2024-01-10] MEDS ORDERED: amLODIPine BESYLATE 10 MG TABLET (FP) PO SCH (10:00)
[2024-01-10 10:09] VITALS: BP 114/69; PULSE 85; TEMP 97.3
[2024-01-10 10:17] LABS: POTASSIUM 3.9 mmol/L (3.5-5.1)
[2024-01-10 10:25] LABS: CALCIUM 9.2 mg/dL (8.5-10.1)
[2024-01-10 10:26] LABS: BLOOD UREA NITROGEN 30.4 mg/dL (7-18)
[2024-01-10 10:32] LABS: CREATININE 1.6 mg/dL (0.55-1.3)
[2024-01-10] MEDS: PATIENT'S OWN MEDICATION (NON-FORMULARY) (L.Acidoph,Paracasei, B.Lactis [Probiotic] 1 EACH PO SCH (12:59)
[2024-01-10] MEDS ORDERED: ATORVASTATIN CA 40 MG TABLET (FP) PO SCH (22:00)
[2024-01-11] MEDS ORDERED: LACTOBACILLUS ACIDOPHILUS 1 TABLET PO SCH (10:00)
== END 2024-01-10 13:40 | disposition home or self-care (01) ==
LOC: SUATTDRO 06:05 → FASUSAT 06:05 → FM/S 11:04 → FASUSAT 01-10 13:40
PROVIDERS: ATTEND Internal Medicine
PROC: 0RQJ0ZZ Repair Right Shoulder Joint, Open Approach (ICD-10-PCS; principal; 2024-01-09 08:22)
DX: M19.011 Primary osteoarthritis, right shoulder (principal); M75.101 Unspecified rotator cuff tear or rupture of right shoulder, not specified as traumatic; M75.21 Bicipital tendinitis, right shoulder
CPT/HCPCS: 36415; 73030-TC-RT-FY; 80048; 85027; 88305-TC; 88311-TC; 94760; 97116-GP; 97162-GP; C1713; C1757; C1776; C1889; J0131; J1100